=== PATIENT | female | born 1975 | race Two or more races ===

== ENCOUNTER 2020-04-10 19:13 | Emergency (ER) | payer OTHER ==
[~2020-04-10] VITALS: Ht 170.2 cm; Wt 95.3 kg
[2020-04-10 20:59] VITALS: BP 127/88
[2020-04-10] MEDS ORDERED: LIDOCAINE 1% HCL (LOCAL ANESTH.) INJ 20ML MDV IJ ONE (21:15)
[2020-04-10] MEDS ORDERED: TETANUS-DIPTH-ACEL PERTUSSIS 0.5ML SYR Tdap IM ONE (21:15)
== END 2020-04-10 22:14 | disposition home or self-care (01) ==
LOC: ER 19:13
DX: S61.411A Laceration without foreign body of right hand, initial encounter (principal); W25.XXXA Contact with sharp glass, initial encounter; Y93.89 Activity, other specified; Y92.89 Other specified places as the place of occurrence of the external cause; Y99.8 Other external cause status
CPT/HCPCS: 12001; 90471; 90715; 99283; J2001

== ENCOUNTER 2022-02-17 13:50 | Emergency (ER) | payer MEDICAID, OTHER ==
[~2022-02-17] VITALS: Ht 170.2 cm; Wt 93.0 kg
[2022-02-17 14:58] VITALS: BP 117/70
[2022-02-17] MEDS ORDERED: ACET-1158 PO (15:27)
[2022-02-17] MEDS ORDERED: AMOX-277 PO (15:27)
== END 2022-02-17 15:32 | disposition home or self-care (01) ==
LOC: ER 13:50
DX: K04.7 Periapical abscess without sinus (principal)

== ENCOUNTER 2022-06-13 21:33 | Emergency (ER) | payer MEDICAID ==
[~2022-06-13] VITALS: Ht 170.2 cm; Wt 90.0 kg
[~2022-06-13 21:33] MED LIST: ACET-1158 PO; AMOX-277 PO
[2022-06-13] MEDS ORDERED: MECLIZINE HCL 25 MG TAB PO ONE (23:00)
[2022-06-13 23:54] LABS: Basophils # (auto) 0 10 ^3/uL (0-0.2); Basophils % (auto) 0.4 % (0.0-2.0); Eosinophils # (auto) 0.3 10 ^3/uL (0-0.8); Lymphocytes % (auto) 11.7 % (10.0-50.0); Mean Corpuscular Hemoglobin 32.4 pg (28.0-32.0); Mean Corpuscular Hgb Conc. 34.3 g/dL (32.0-36.0); Mean Corpuscular Volume 94.4 fL (80.0-100.0); Monocytes # (auto) 0.5 10 ^3/uL (0-1.3); Monocytes % (auto) 5.5 % (0.0-12.0); Neutrophils # (auto) 6.7 10 ^3/uL (1.6-8.6); Neutrophils % (auto) 79.4 % (37.0-80.0); Red Blood Cells 4.03 10^6/uL (4.0-5.20); Red Cell Distribution Width 12.9 % (11.8-14.3); White Blood Cell 8.5 10^3/uL (4.4-10.8)
[2022-06-14 00:07] LABS: Albumin 3.3 g/dL (3.4-5.0); BUN/Creatinine Ratio 19.4; Potassium 4.3 mmol/L (3.5-5.1)
[2022-06-14 00:10] LABS: Bilirubin, Total 0.4 mg/dL (0.2-1.0)
[2022-06-14 02:32] VITALS: BP 136/92
== END 2022-06-14 02:41 | disposition home or self-care (01) ==
LOC: ER 21:33
DX: R42 Dizziness and giddiness (principal); R11.2 Nausea with vomiting, unspecified; Z79.2 Long term (current) use of antibiotics; Z79.899 Other long term (current) drug therapy
CPT/HCPCS: 36415; 70450; 71045; 80053; 84484; 85025; 93005; 99285; J8597